=== PATIENT | male | born 2005 | race Caucasian/White ===

== ENCOUNTER 2025-05-28 17:03 | Emergency (ER) | payer MEDICAID, SELFPAY ==
--- NOTE | ~2025-05-28 | XR_ITS ---
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 Technique: 2 views obtained. Findings: The lungs are clear, no effusion. No pneumothorax. Heart is normal size. Mediastinal and hilar contours are within normal limits. Bony thorax no acute abnormality. Impression: No acute cardiopulmonary abnormality. Reviewed, dictated and finalized at location P. ICATING MACHINE TENDER Impression: No acute cardiopulmonary abnormality.
--- NOTE | 2025-05-28 17:19 | ED_ITS ---
HPI - Male Genitourinary General Chief complaint: Upper Respiratory Infection Stated complaint: std testing Time Seen by Provider: 05/28/25 17:28 Source: patient, RN notes reviewed and old records reviewed Mode of arrival: ambulatory Limitations: no limitations History of Present Illness HPI Narrative: 19-year-old male presents to the [facility] with vague complaints of 1 week history of joint pain, feeling like it is hard to take care from self, fingernails brachii see, has white patches to the roof his mouth and inside his cheeks as well as on his tongue. Recur reports cough. States that he has felt feverish. Patient had used to [employer] to attempt to transition, states it was too expensive and has not been able to keep it up. Has had some mental health issues, contacted [facility] last night which they are setting him up with counseling in the near future. Denies any current thoughts of hurting himself or anyone else. Patient does vape patient smokes marijuana Related Data Home Medications ?Medication ?Instructions ?Recorded ?Confirmed ?Last Taken ?Type estrone IM 05/28/25 Unknown History finasteride .ROUTE 05/28/25 Unknown His tory Allergies Allergy/AdvReac Type Severity Reaction Status Date / Time soy Allergy Unknown Unknown Verified 05/28/25 17:29 Review of Systems Review of Systems: All systems reviewed & are unremarkable except as noted in HPI and below Constitutional: Constitutional: Reports as per HPI and Reports body ache(s) ENT: Reports as per HPI Cardiovascular: Cardiovascular: Reports no additional cardiovascular complaints, Denies chest pain and Denies dyspnea Respiratory: Respiratory: Reports as per HPI, Denies chest congestion, Reports cough and Denies dyspnea Musculoskeletal: Musculoskeletal: Reports no additional musculoskeletal complaints Integumentary/Breasts: Skin/Breast: Reports system reviewed and no additional complaints, except as docu PMFSH Comments At the time of my signature, I reviewed and agree with the nursing past medical, surgical, social, and family history. There is no relevant family history pertinent to the patient complaint. Exam Const: General: cooperative, no acute distress, well developed, alert, anxious, tired appearing, uncomfortable and well nourished Nutritional Appearance: well nourished Orientation/consciousness: patient oriented x3 Limitations: no limitations HENMT: Head: normal to inspection Ears: hearing grossly normal bilaterally, external ears normal, TM's normal bilaterally, EAC's normal, mastoids normal and no periauricular adenopathy Mouth: Yes lip normal and Yes other ( white patches to the inside of the cheeks, roof of mouth.) Throat: posterior oropharynx normal, uvula midline and no uvular edema Eyes: General: appearance normal, both eyes and all related structures Alignment and Position: alignment normal Neck: Neck: normal visual inspection, full ROM, no lymphadenopathy and no meningeal signs Chest: Chest palpation & inspection: normal inspection of the chest Resp: Effort & Inspection: normal respiratory effort and able to speak in complete sentences Auscultation: no crackles, no rales, no rhonchi and wheezes throughout Cardio: Rate: tachycardic Skin: General skin exam: normal color and no rashes or lesions noted Neuro: General: patient oriented x3, gait normal, moves all extremities and no meningeal signs Cognition (Neuro): normal cognition Speech: normal speech Gait exam (Neuro): Normal gait present Extrem: General: normal to inspection, full ROM, capillary refill normal and normal gait Psych: Appearance: grossly normal and well kempt Mental Status: mental status grossly normal Speech and movement: Normal speech and movement present and Clear speech present Affect: normal affect Attitude: cooperative Course Course Level of Care: Express Care Visit Vital Signs Vital signs: Vital Signs Temperature 98.0 F 05/28/25 17:20 Pulse Rate 124 H 05/28/25 17:20 Respiratory Rate 20 05/28/25 17:20 Blood Pressure 142/84 H 05/28/25 17:20 Pulse Oximetry 98 05/28/25 17:20 Oxygen Delivery Room Air 05/28/25 17:20 Temperature 98.0 F 05/28/25 17:20 Pulse Rate 118 H 05/28/25 18:06 Respiratory Rate 20 05/28/25 17:20 Blood Pressure 142/84 H 05/28/25 17:20 Pulse Oximetry 98 05/28/25 17:20 Oxygen Delivery Room Air 05/28/25 17:20 Reviewed MDM - Male Genitourinary MDM Narrative Medical decision making narrative: Patient sitting in exam room. Patient is nontoxic, blood pressure is mildly elevated, pulse is elevated. Patient and his extremely anxious. Multiple complaints that unfortunately we cannot workup. Was concern for STIs, discussed that we only test for 3. Unfortunately we do not offer services for blood work. Patient has follow-up with Mental Health. Thrush most likely from using his vaping Discharge instructions reviewed with patient, as well as provided in writing per nursing staff. The instructions also include specific and strict return/GO TO THE ER as well as f/u information. All questions have been answered, and the patient deny any further questions with discharge and discharge plan. Some parts of this dictation were generated by voice recognition software and may contain typographical and/or grammatical inaccuracies. Lab Data Labs: Lab Results 05/28/25 05/28/25 Range/Units 17:09 17:45 C. trachomatis (PCR) Not detected (NOT DETECTE) N. gonorrhoeae (PCR) Not detected (NOT DETECTE) POC Grp A Strep Screen Negative (Negative) T. 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 Technique: 2 views obtained. Findings: The lungs are clear, no effusion. No pneumothorax. Heart is normal size. Mediastinal and hilar contours are within normal limits. Bony thorax no acute abnormality. Impression: No acute cardiopulmonary abnormality Critical Care Time Critical Care Time Critical Care Time: No Discharge Plan Discharge Clinical Impression: Bronchitis, Thrush Patient Disposition: Home Condition: Stable Instructions: Antibiotic Form, Sexually Transmitted Diseases (ED), Safe Sex Practices (ED), Oral Candidiasis (ED), Acute Bronchitis (ED) Additional Instructions: today your blood pressure was 142/84. Please follow-up with primary care provider. A list for [facility] was given to you. You have been tested for chlamydia, gonorrhea and Trichomonas. If these are positive we will notify you in either have you return or a medication will be called In for you. If strep test was negative. You need to stop vaping. For any new or worsening symptoms please go directly to the emergency room Patient Language: Japanese Prescriptions: New nystatin 100,000 unit/mL suspension 5 ml PO QID 7 Days Qty: 140 0RF Rx Instructions: swish and swallow albuterol sulfate [Ventolin HFA] 90 mcg/actuation HFA aerosol inhaler 2 puff inhalation QID PRN (Reason: shortness of breath or wheezing) Qty: 6.7 0RF (DME) Aerochamber MV Spacer See Rx Instructions .Route Qty: 1 0RF Rx Instructions: As directed prednisone 20 mg tablet 20 mg PO DAILY Qty: 5 0RF No Action finasteride .ROUTE estrone [Estrogenic Substance] IM Follow-up/Referrals: PHYSICIAN,PROBATION OFFICER [Primary Care Provider, Internal Medicine] Stand Alone Forms: Work/School Release IP Time of Disposition: 18:14
[2025-05-28 17:20] VITALS: BP 142/84; PULSE 124; RESP 20; TEMP 36.7; O2SAT 98
[2025-05-28 17:47] LABS: EDSTREPNEGPOS1 Negative (Negative)
[2025-05-28 18:06] VITALS: PULSE 118
[2025-05-29 18:56] LABS: Trichomonas Vag PCR NOT DETECTED (NOT DETECTE)
== END 2025-05-28 18:22 | disposition home or self-care (01) ==
PROVIDERS: Emergency Provider Nurse Practitioner
DX: J40 Bronchitis, not specified as acute or chronic (principal); B37.0 Candidal stomatitis; Z11.3 Encounter for screening for infections with a predominantly sexual mode of transmission
CPT/HCPCS: 71046; 87081; 87491; 87591; 87661; 87880; 99203; G0463